=== PATIENT | female | born 1955 | race Caucasian/White ===

== ENCOUNTER 2019-08-03 08:59 | Outpatient (REF) | payer MEDICAID, SELFPAY ==
[2019-08-03 21:21] LABS: ALT 26 U/L (14-59); AST 18 U/L (15-37); Albumin 3.8 g/dL (3.4-5.0); Alkaline Phosphatase 127 U/L (46-116); Anion Gap 7.4 mmol/L (3-11); Bilirubin, Total 0.9 mg/dL (0.2-1.0); CO2 31.6 mmol/L (21.0-32.0); CREATININE 0.85 mg/dL (0.55-1.02); Calcium 8.9 mg/dL (8.5-10.1); Chloride 102 mmol/L (98-107); Cholesterol 311 mg/dL (<200); Glucose 90 mg/dL (74-106); HDL Cholesterol 32 mg/dL (40-60); Potassium 4.2 mmol/L (3.5-5.1); Sodium 141 mmol/L (136-145); Total Protein 7.4 g/dL (6.4-8.2); Triglyceride 593 mg/dL (<150)
[2019-08-03 21:53] LABS: BUN 14 mg/dL (7-18); LDL CHOLESTEROL 94 mg/dL (<100)
== END 2019-08-03 09:19 ==
LOC: NCHCN 08:59
PROVIDERS: PCP Family Medicine; Visit Provider Family Medicine
DX: E66.9 Obesity, unspecified (principal); Z00.00 Encounter for general adult medical examination without abnormal findings
CPT/HCPCS: 80053; 80061; 83721

== ENCOUNTER 2020-07-14 17:45 | Outpatient (REF) | payer MEDICAID, SELFPAY ==
[2020-07-15 14:22] LABS: ALT 29 U/L (14-59); AST 18 U/L (15-37); Alkaline Phosphatase 119 U/L (46-116); BUN 17 mg/dL (7-18); Bilirubin, Total 0.7 mg/dL (0.2-1.0); CREATININE 0.95 mg/dL (0.55-1.02); Chloride 103 mmol/L (98-107); Estimated GFR 59.41 (mL/min/1.73m2); Glucose 104 mg/dL (74-106); Sodium 139 mmol/L (136-145); Total Protein 7.5 g/dL (6.4-8.2)
[2020-07-15 14:25] LABS: Anion Gap 8.8 mmol/L (3-11); CO2 27.2 mmol/L (21.0-32.0); Cholesterol 280 mg/dL (<200); HDL Cholesterol 28 mg/dL (40-60); Triglyceride 941 mg/dL (<150)
[2020-07-15 14:39] LABS: LDL CHOLESTEROL 111 mg/dL (<100)
== END 2020-07-14 18:05 ==
LOC: NCHCN 17:45
PROVIDERS: PCP Family Medicine; Visit Provider Nurse Practitioner Family
DX: E88.81 Metabolic syndrome and other insulin resistance (principal)
CPT/HCPCS: 80053; 80061; 83721

== ENCOUNTER 2020-08-29 19:02 | Outpatient (REF) | payer MEDICAID, SELFPAY ==
[2020-08-29 14:05] LABS: ALT 32 U/L (14-59); AST 21 U/L (15-37); Albumin 3.9 g/dL (3.4-5.0); Alkaline Phosphatase 114 U/L (46-116); Anion Gap 11.6 mmol/L (3-11); BUN 14 mg/dL (7-18); Bilirubin, Total 1.3 mg/dL (0.2-1.0); CO2 24.4 mmol/L (21.0-32.0); CREATININE 0.8 mg/dL (0.55-1.02); Calcium 9.2 mg/dL (8.5-10.1); Calculated LDL 83 mg/dL (<100); Chloride 105 mmol/L (98-107); Cholesterol 162 mg/dL (<200); Glucose 100 mg/dL (74-106); HDL Cholesterol 40 mg/dL (40-60); Potassium 4.1 mmol/L (3.5-5.1); Sodium 141 mmol/L (136-145); TSH (W/Ref FT4) 1.35 uIU/mL (0.36-3.74); Total Protein 7.6 g/dL (6.4-8.2); Triglyceride 196 mg/dL (<150)
== END 2020-08-29 19:03 | disposition home or self-care (01) ==
LOC: NCHCN 19:02
PROVIDERS: PCP Family Medicine; Visit Provider Nurse Practitioner Family
DX: E88.81 Metabolic syndrome and other insulin resistance (principal)
CPT/HCPCS: 80053; 80061; 84443

== ENCOUNTER 2021-09-03 16:03 | Outpatient (REF) | payer MEDICAID, SELFPAY ==
[2021-09-03 14:55] LABS: ALT 28 U/L (14-59); AST 16 U/L (15-37); Albumin 3.6 g/dL (3.4-5.0); Alkaline Phosphatase 138 U/L (46-116); Anion Gap 14.3 mmol/L (3-11); BUN 12 mg/dL (7-18); Bilirubin, Total 0.8 mg/dL (0.2-1.0); CO2 21.7 mmol/L (21.0-32.0); CREATININE 0.7 mg/dL (0.55-1.02); Calcium 8.9 mg/dL (8.5-10.1); Calculated LDL 98 mg/dL (<100); Chloride 104 mmol/L (98-107); Cholesterol 199 mg/dL (<200); Glucose 98 mg/dL (74-106); HDL Cholesterol 38 mg/dL (40-60); Potassium 4.2 mmol/L (3.5-5.1); Sodium 140 mmol/L (136-145); Total Protein 7.2 g/dL (6.4-8.2); Triglyceride 315 mg/dL (<150)
== END 2021-09-03 16:04 | disposition home or self-care (01) ==
LOC: NCHCN 16:03
PROVIDERS: PCP Family Medicine; Visit Provider Family Medicine
DX: E78.41 Elevated Lipoprotein(a) (principal); E78.1 Pure hyperglyceridemia; E88.81 Metabolic syndrome and other insulin resistance
CPT/HCPCS: 80053; 80061

== ENCOUNTER 2021-11-30 10:39 | Outpatient (REF) | payer MEDICAID, SELFPAY ==
[2021-11-30 14:49] LABS: ALT 20 U/L (14-59); AST 15 U/L (15-37); Albumin 3.5 g/dL (3.4-5.0); Alkaline Phosphatase 115 U/L (46-116); Bilirubin, Direct 0.1 mg/dL (0.0-0.2); Bilirubin, Total 0.7 mg/dL (0.2-1.0); Total Protein 7.3 g/dL (6.4-8.2)
== END 2021-11-30 10:40 | disposition home or self-care (01) ==
LOC: NCHCN 10:39
PROVIDERS: PCP Family Medicine; Visit Provider Family Medicine
DX: B35.1 Tinea unguium (principal); Z51.81 Encounter for therapeutic drug level monitoring
CPT/HCPCS: 80076

== ENCOUNTER 2022-09-21 12:08 | Outpatient (REF) | payer MEDICAID, SELFPAY ==
[2022-09-21 18:02] LABS: ALT 24 U/L (14-59); AST 21 U/L (15-37); Albumin 3.5 g/dL (3.4-5.0); Alkaline Phosphatase 109 U/L (46-116); Anion Gap 8.4 mmol/L (3-11); BUN 16 mg/dL (7-18); Bilirubin, Total 0.8 mg/dL (0.2-1.0); CO2 25.6 mmol/L (21.0-32.0); CREATININE 0.9 mg/dL (0.55-1.02); Calcium 8.8 mg/dL (8.5-10.1); Calculated LDL 72 mg/dL (<100); Chloride 106 mmol/L (98-107); Cholesterol 153 mg/dL (<200); Estimated GFR 70.95 (mL/min/1.73m2); Glucose 105 mg/dL (74-106); HDL Cholesterol 38 mg/dL (40-60); Sodium 140 mmol/L (136-145); TSH (W/Ref FT4) 1.56 uIU/mL (0.36-3.74); Total Protein 7.5 g/dL (6.4-8.2); Triglyceride 218 mg/dL (<150)
[2022-09-21 18:12] LABS: Vitamin D 25 Total 16.6 ng/mL (30-100)
== END 2022-09-21 12:09 | disposition home or self-care (01) ==
LOC: NCHCN 12:08
PROVIDERS: PCP Family Medicine; Visit Provider Family Medicine
DX: E78.41 Elevated Lipoprotein(a) (principal); E88.81 Metabolic syndrome and other insulin resistance; E66.8 Other obesity; L60.3 Nail dystrophy; M81.0 Age-related osteoporosis without current pathological fracture
CPT/HCPCS: 80053; 80061; 82306; 84443

== ENCOUNTER 2023-04-26 13:47 | Outpatient (REF) | payer OTHER, MEDICAID, SELFPAY ==
--- OUTSIDE RECORDS SUMMARY | 2023-04-26 13:48 | XMS_ITS | CCD ---
Author Name Unknown Address [address] [place] [address] [phone] Organization Unknown Address [address] [place] [address] [phone] Care Team Providers Care Stock Replenisher Name Role Phone JASON SIMON Attending Physician [phone] Vital Signs Unknown or Not Available. Allergies Unknown or Not Available. Procedures Unknown or Not Available. History of Immunizations Unknown or Not Available. Problems Unknown or Not Available. Results Unknown or Not Available. Active Medications Unknown or Not Available. Medications Administered During Visit Unknown or Not Available. Encounters Encounter Diagnosis Diagnosis Code Start Date Pain in right knee [id number] 08/26/2022 Social History Smoking Status Code Start Date End Date Former smoker [id number] Patient Decision Aids Unknown or Not Available. Discharge Instructions You were admitted to [facility] on 08/26/2022 14:23 with a principal diagnosis of Pain in right knee You were discharged from [facility] on 08/26/2022 11:56 Should you have any questions prior to discharge, please contact a member of your healthcare team. If you have left the hospital and have any questions, please contact your primary care physician. Chief Complaint and Reason For Visit Chief Complaint Date of Onset KNEE & ANKLE PAIN Function Status Unknown or Not Available. Plan of Care Unknown or Not Available. Referral/Transition of Care Unknown or Not Available.
--- OUTSIDE RECORDS SUMMARY | 2023-04-26 13:48 | XMS_ITS | CCD ---
Author Name Unknown Address [address] [place] [address] [phone] Organization Unknown Address [address] [place] [address] [phone] Care Team Providers Care Health Coach Name Role Phone MERE SCHOFIELD MD Attending Physician [phone] MERE SCHOFIELD MD Er Physician [phone] Vital Signs Unknown or Not Available. Allergies Unknown or Not Available. Procedures Unknown or Not Available. History of Immunizations Unknown or Not Available. Problems Unknown or Not Available. Results COMPREHENSIVE METABOLIC PANE L (CMP) - Collect Date/Time: 02/18/2021 05:15 Test Name Code Test Result Test Units Test Ref Rang e GLUCOSE 2345-7 108 mg/dL L=70 H=116 BUN 3094-0 12 mg/dL L=6 H=25 CREATININE 2160-0 0.95 mg/dL L=0.51 H=0.95 SODIUM SERUM 2951-2 140 mmol/L L=136 H=145 POTASSIUM SERUM 2823-3 3.7 mmol/L L=3.4 H=5 .2 CHLORIDE SERUM 2075-0 105 mmol/L L=96 H=110 CARBON DIOXIDE (CO2) 2028-9 26 mmol/L L=22 H=34 ANION GAP 66154-5 9.1 mmol/L CALCIUM SERUM 11138-4 8.8 mg/dL L=8.2 H=10. 2 BILIRUBIN TOTAL 1975-2 1.7 mg/dL L=0.0 H=1 .3 ALK. PHOS. 6768-6 119 U/L L=46 H=116 SGOT (AST) 1920-8 11 U/L L=15 H=37 SGPT (ALT) 1742-6 21 U/L L=12 H=78 TOTAL PROTEIN 2885-2 7.8 gm/dL L=6.0 H=8.0 ALBUMIN 1751-7 3.7 gm/dL L=3.4 H=5.0 AGE 66 years eGFR (non-Afr.Amer.) 68274-4 59 mL/min eGFR (Afr-[place]an) 34122-9 72 mL/min CBC W/ DIFFERENTIAL - [facility] t Date/Time: 02/18/2021 05:15 Test Name Code Test Result Test Units Test Ref Rang e WBC 6690-2 11.42 th/cmm L=5.00 H=10.00 NEUT % 74.4 % L=40.0 H=80.0 LYMPH % 15.7 % L=10.0 H=50.0 MONO % 25390-4 8.3 % L=2.0 H=12.0 EOS % 0.9 % L=0.0 H=8.0 BASO % 0.4 % L=0.0 H=3.0 IG % 2514-8 0.3 % L=0.0 H=1.1 NRBC % 20603-3 0.0 % L=0.0 H=0.0 NEUT abs count 751-8 8.5 th/cmm L=1.6 H=8. 4 LYMPH abs count 731-0 1.8 th/cmm L=1.5 H=4 .0 MONO abs count 742-7 1.0 th/cmm L=0.2 H=1. 0 EOS abs count 711-2 0.1 th/cmm L=0.0 H=0.5 BASO abs count 704-7 0.1 th/cmm L=0.0 H=0. 2 IG abs count 45444-4 0.0 th/cmm L=0.0 H=0.1 NRBC abs count 43048-0 0.0 mil/cmm L=0.0 H=0. 0 RBC 789-8 4.48 mil/cmm L=3.90 H=5.40 HEMOGLOBIN 718-7 14.0 gm/dL L=12.0 H=16.0 HEMATOCRIT 4544-3 41 % L=37 H=47 MCV 787-2 92 fL L=82 H=92 MCH 785-6 31.3 pg L=27.0 H=31.0 MCHC 786-4 33.9 % L=32.0 H=36.0 RDW-SD 788-0 41.9 fL L=39.0 H=49.0 PLATELET COUNT 777-3 266 th/cmm L=150 H=45 0 URINALYSIS WITH REFLEX CULT IF POSITIVE - Collect Date/Time: 02/18/2021 05:15 Test Name Code Test Result Test Units Test Ref Rang e COLLECTION MODE: Clean Catch N/A Color 5778-6 YELLOW N/A yellow Appearance 5767-9 CLEAR N/A clear Glucose urine 73660-5 NEGATIVE N/A negative mg /dl Bilirubin 5770-3 NEGATIVE N/A negative Ketones 2514-8 NEGATIVE N/A negative mg/dl Spec gravity 5811-5 1.025 N/A 1.003 - 1.03 0 pH urine 2756-5 5.5 N/A 5.0 - 7.0 Protein 33566-7 NEGATIVE N/A negative mg/dl Urobilinogen 36047-8 0.2 N/A <or= 1 EU/dl Nitrite. 5802-4 NEGATIVE N/A negative Blood 5794-3 SMALL N/A negative Leukocytes. TRACE N/A negative MICROSCOPIC INDICATED N/A WBCs. 51055-3 0-5 N/A 0-5 / hpf RBCs 06706-3 0-5 N/A 0-5 / hpf Epith cells 04035-5 0-5 N/A 0-5 / hpf Cell types squamous N/A Crystals none N/A none Bacteria none N/A none Mucus 8247-9 present N/A none Casts 19276-7 none N/A none /lpf Active Medications Unknown or Not Available. Medications Administered During Visit Unknown or Not Available. Encounters Encounter Diagnosis Diagnosis Code Start Date Diverticulitis of large inte shayla without perforation or abscess without bleeding [id number] 02/18/2021 Social History Smoking Status Code Start Date End Date Former smoker [id number] Patient Decision Aids Unknown or Not Available. Discharge Instructions You were admitted to [facility] on 02/18/2021 04:54 with a principal diagnosis of Diverticulitis of large intestine without perforation or abscess without bleeding You had the following tests done:CBC W/ DIFFERENTIALCOMPREHENSIVE METABOLIC PANEL (CMP)URINALYSIS WITH REFLEX CULT IF POSITIVE You were discharged from [facility] on 02/18/2021 07:39 Should you have any questions prior to discharge, please contact a member of your healthcare team. If you have left the hospital and have any questions, please contact your primary care physician. Chief Complaint and Reason For Visit Chief Complaint Date of Onset ABDOMINAL PAIN Function Status Unknown or Not Available. Plan of Care Unknown or Not Available. Referral/Transition of Care Unknown or Not Available.
[2023-04-26 15:13] LABS: ALT 31 U/L (14-59); AST 23 U/L (15-37); Albumin 3.4 g/dL (3.4-5.0); Alkaline Phosphatase 143 U/L (46-116); Anion Gap 9.7 mmol/L (3-11); BUN 12 mg/dL (7-18); Bilirubin, Total 0.7 mg/dL (0.2-1.0); CO2 24.3 mmol/L (21.0-32.0); CREATININE 0.9 mg/dL (0.55-1.02); Calculated LDL 114 mg/dL (<100); Chloride 106 mmol/L (98-107); Cholesterol 212 mg/dL (<200); Estimated GFR 70.51 (mL/min/1.73m2); Glucose 107 mg/dL (74-106); HDL Cholesterol 38 mg/dL (40-60); Potassium 4.4 mmol/L (3.5-5.1); Sodium 140 mmol/L (136-145); Total Protein 7.4 g/dL (6.4-8.2); Triglyceride 300 mg/dL (<150)
[2023-04-26 16:01] LABS: Vitamin D 25 Total 15.4 ng/mL (30-100)
== END 2023-04-26 13:48 | disposition home or self-care (01) ==
LOC: NCHCN 13:47
PROVIDERS: PCP Family Medicine; Visit Provider Family Medicine
DX: Z00.00 Encounter for general adult medical examination without abnormal findings (principal); E78.41 Elevated Lipoprotein(a); E66.9 Obesity, unspecified; E78.1 Pure hyperglyceridemia
CPT/HCPCS: 80053; 80061; 82306

== ENCOUNTER 2023-08-30 20:27 | Outpatient (REF) | payer BC, SELFPAY | END 2023-08-30 20:28 | disposition home or self-care (01) | LOC: NCHCN 20:27 | PROVIDERS: PCP Family Medicine; Visit Provider Physician Assistant | DX: J06.9 Acute upper respiratory infection, unspecified (principal) | CPT/HCPCS: 87070 ==

== ENCOUNTER 2024-05-15 08:32 | Outpatient (REF) | payer BC, SELFPAY ==
[2024-05-15 15:16] LABS: Hemoglobin A1C 5.8 % (<5.7)
[2024-05-15 16:02] LABS: ALT 25 U/L (14-59); AST 22 U/L (15-37); Albumin 3.4 g/dL (3.4-5.0); Alkaline Phosphatase 111 U/L (46-116); Anion Gap 11.1 mmol/L (3-11); BUN 12 mg/dL (7-18); CO2 24.9 mmol/L (21.0-32.0); CREATININE 0.9 mg/dL (0.55-1.02); Calculated LDL 102 mg/dL (<100); Chloride 107 mmol/L (98-107); Cholesterol 196 mg/dL (<200); Estimated GFR 70.07 (mL/min/1.73m2); Glucose 100 mg/dL (74-106); HDL Cholesterol 46 mg/dL (40-60); Sodium 143 mmol/L (136-145); Total Protein 7.3 g/dL (6.4-8.2); Triglyceride 241 mg/dL (<150)
== END 2024-05-15 08:33 | disposition home or self-care (01) ==
LOC: NCHCN 08:32
PROVIDERS: PCP Family Medicine; Visit Provider Family Medicine
DX: E66.9 Obesity, unspecified (principal); E55.9 Vitamin D deficiency, unspecified
CPT/HCPCS: 80053; 80061; 82306; 83036

== ENCOUNTER 2025-01-11 17:53 | Outpatient (REF) | payer MEDICARE, SELFPAY | END 2025-01-11 17:54 | disposition home or self-care (01) | LOC: NCHCN 17:53 | PROVIDERS: PCP Family Medicine; Visit Provider Physician Assistant | DX: R39.9 Unspecified symptoms and signs involving the genitourinary system (principal) | CPT/HCPCS: 87086 ==

== ENCOUNTER 2025-05-14 16:09 | Outpatient (REF) | payer MEDICARE, SELFPAY | END 2025-05-14 16:10 | disposition home or self-care (01) | LOC: NCHCN 16:09 | PROVIDERS: PCP Family Medicine; Visit Provider Physician Assistant | DX: R39.9 Unspecified symptoms and signs involving the genitourinary system (principal) | CPT/HCPCS: 87077; 87086; 87186 ==